=== PATIENT | male | born 1960 | race Caucasian/White ===

== ENCOUNTER 2016-10-13 09:01 | Emergency (ER) | payer OTHER ==
[2016-10-13 09:33] LABS: BASOPHIL# 0.5 X 10^3uL (0.0-0.1); BASOPHILS 2.8 % (0.0-2.0); EOSINOPHILS 1.9 % (0.0-6.0); EOSINOPHILS# 0.4 X 10^3uL (0.0-0.4); HEMATOCRIT 38.2 % (42.0-54.0); LYMPHOCYTES 7.3 % (20.0-40.0); LYMPHOCYTES# 1.4 X 10^3uL (0.8-3.8); MEAN CELL VOLUME 84.1 fL (80.0-100.0); MEAN CORPUS. HGB CONCENTRATION 33.9 g/dL (32.0-36.0); MEAN CORPUSCULAR HEMOGLOBIN 28.5 pg (29.0-35.0); MONOCYTES 10.6 % (2.0-10.0); MONOCYTES# 2.1 X 10^3uL (0.2-1.0); NEUTROPHILS 77.4 % (54.0-75.0); PLATELET COUNT 133 X 10^3uL (130-440); RED BLOOD COUNT 4.54 X 10^6uL (4.20-6.10); RED CELL DISTRIBUTION WIDTH 13.1 % (11.5-14.5); WHITE BLOOD COUNT 19.4 X 10^3uL (3.9-10.7)
[2016-10-13 09:43] LABS: ALBUMIN 3.7 g/dL (3.5-5.0); ALKALINE PHOSPHATASE 81 U/L (38-126); ALT 29 U/L (21-72); AST 13 U/L (17-59); BILIRUBIN, TOTAL 1.4 mg/dL (0.2-1.3); BLOOD UREA NITROGEN 9 mg/dL (9-20); CALCIUM 8.8 mg/dL (8.4-10.2); CHLORIDE 100 mmol/L (98-107); CREATININE 0.7 mg/dL (0.7-1.3); EST GLOMERULAR FILTRATION RATE > 60 mL/min; POTASSIUM 4.1 mmol/L (3.5-5.1); SODIUM 138 mmol/L (137-145); TOTAL PROTEIN 7.4 g/dL (6.3-8.2)
[2016-10-13 09:52] LABS: GLUCOSE 259 mg/dL (70-100)
[2016-10-13] MEDS ORDERED: ACETAMINOPHEN 325 MG TABLET PO ONE (10:03)
[2016-10-13 10:41] LABS: URINE MUCUS NONE SEEN (Up to 25%); URINE RBC NONE SEEN (0-5/hpf); URINE SQUAMOUS EPITHELIAL CELL NONE SEEN (<= 15/hpf)
[2016-10-13 10:48] LABS: URINE AMORPHOUS SEDIMENT UP TO 25%/lpf (Up to 25%); URINE APPEARANCE CLEAR; URINE BACTERIA NONE SEEN (<10/hpf); URINE BILIRUBIN NEGATIVE (NEGATIVE); URINE BLOOD NEGATIVE (NEGATIVE); URINE COLOR YELLOW; URINE GLUCOSE NORMAL (NEGATIVE); URINE KETONE NEGATIVE (NEGATIVE); URINE LEUKOCYTE ESTERASE NEGATIVE (NEGATIVE); URINE NITRITE NEGATIVE (NEGATIVE); URINE PROTEIN NEGATIVE (NEG - TRACE); URINE TRANSITIONAL EPI CELL 0-5/hpf (<=5/hpf); URINE UROBILINOGEN 1mg/dL (Normal) (NEG-1mg/dL); URINE WBC 0-4/hpf (0-4/hpf)
--- NOTE | 2016-10-13 12:56 | ER NURSING DOCUMENTATION ---
Nurse's Notes [facility] Name:Luis A Frye Age:56 yrs Sex:Male :1960 Arrival Date:10/13/2016 Time:08:56 Bed5 Private MD:No PCP, Identified Diagnosis:Fever Presentation: 10/13 08:59 Presenting complaint: Patient states: Body aches, chills, night sweats. Transition of tg care: patient was not received from another setting of care. 08:59 Acuity: HERMILA 3 tg 08:59 Method Of Arrival: Private Vehicle tg 09:18 Presenting complaint: Patient states: HAD SIMILAR SYMPTOMS LAST WEEK, SEEN AT URGENT lc CARE, DID UA THAT WAS NEGATIVE, GIVEN FLEXERIL FOR MUSCLE ACHES. 12:28 Acuity: HERMILA 2 tg Triage Assessment: 09:16 General: Appears in no apparent distress, Behavior is appropriate for age, cooperative. lc Pain: Complains of pain in GENERAL BODY ACHES Pain At worst was 6 out of 10 on a pain scale. Quality of pain is described as aching, Pain began 2-3 days ago. Neuro: Level of Consciousness is awake, alert, Oriented to person, place, time, event. GI: Abdomen is flat, Abd is soft and non tender X 4 quads. GI: Denies diarrhea, nausea, vomiting. Derm: Skin is pink, warm & dry. Denies. Historical: - Allergies: SULFA (SULFONAMIDES); - Home Meds: 1. HCTZ 2. Omeprazole Oral - PMHx: Hypertension; - PSHx: BARIATRIC SLEEVE; - Tetanus: < 10 years. - Ebola Screening: : Patient negative for fever greater than or equal to 101.5 degrees Fahrenheit, and additional compatible Ebola Virus Disease symptoms. Patient denies exposure to infectious person. Patient denies travel to an Ebola-affected area in the 21 days before illness onset. No symptoms or risks identified at this time. . - Immunization history: Flu Vaccine >1 year. - Social history: Smoking status: Patient states was never smoker of tobacco. Screenin:17 Infectious Disease Risk None. Abuse screen: Denies threats or abuse. Denies injuries lc from another. Nutritional screening: No deficits noted. Assessment: 09:17 See Triage Assessment done by same RN. Cardiovascular: Capillary refill < 3 seconds. lc Respiratory: Respiratory effort is even, unlabored. 10:40 Reassessment: Patient appears in no apparent distress at this time. VSS, TEMP DROPPING, lc FLUIDS RUNNING, UP TO BR, STEADY ON FEET, US SENT.. 11:48 Reassessment: Patient states feeling better. Patient states symptoms have improved. Patient appears in no apparent distress at this time. STILL AWAITING CT RESULTS. RESTING COMFORTABLE, FEELING BETTER. 11:59 Reassessment: FOUND A TICK ON HER. PATIENT CHECKED AND NO TICKS OR BITES NOTED.. lc 12:25 Reassessment: TRANSFER ARRANGED. IV FLUSHED AND WRAPPED FOR TRANSFER. MAP GIVEN.. Vital Signs: 08:56 BP 110 / 73 LA Sitting (auto/reg); Pulse 110 RA; Resp 16 S; Temp 99.0(O); Pulse Ox 93% em3 on R/A; Weight 89.81 kg (R); Height 6 ft. 0 in. (182.88 cm) (R); Pain 3/10; 09:50 Pulse 108; Resp 16; Temp 101; lc 10:40 BP 100 / 67; Pulse 96; Resp 16; Temp 100.3; Pulse Ox 93% on R/A; Pain 2/10; lc 11:47 BP 117 / 72; Pulse 96; Resp 18; Pulse Ox 92% on R/A; Pain 2/10; lc 12:24 BP 107 / 70; Pulse 95; Resp 18; Temp 99.9; Pulse Ox 93% on R/A; Pain 1/10; lc 08:56 Body Mass Index 26.85 (89.81 kg, 182.88 cm) em3 ED Course: 08:56 Patient arrived in ED. em3 08:58 Valuables Remains with patient Patient has correct armband on for positive em3 identification. Bed in low position. Call light in reach. Side rails up X 1. 09:00 Triage completed. tg 09:14 Diana Gann, [place] is Primary Nurse. lc 09:19 Shola Kemp MD is Attending Physician. tl1 09:23 Labs drawn. By butcher helper Held in ED. Inserted saline lock: 20 gauge in right forearm and em3 blood collected. 09:42 First set of blood cultures drawn by va. lc 10:[address] pm1 10:[address] pm1 11:03 No PCP, Identified is Private Physician. em3 Administered Medications: 09:43 Drug: NS 0.9% 1000 ml; Route: IV; Rate: bolus; Site: right forearm; Delivery: [place] lc Tubing; 11:00 Follow up: IV Status: Completed infusion; IV Intake: 1000ml 09:54 Drug: Tylenol 975 mg; Route: PO; lc 10:46 Follow up: Response: Temperature is decreased lc Intake: 11:00 IV: 1000ml; Total: 1000ml. Outcome: 12:32 ER care complete, transfer ordered by tl1 12:49 Transferred: Patient will be transferred to: [facility]. Facility lc Acceptance Time: October 13, 2016 at 12:30 Patient's face sheet was faxed to accepting facility. Face Sheet included patient's name, address, age, gender, contact information and insurance information. Patient will be transported by: Private Vehicle. Report called to: ANUJ MAGANA Nurse and Physician Charting and Notes were sent to Accepting Facility. All tests and/or procedures with results, if applicable, were sent to accepting facility. 12:50 Condition: stable lc 12:50 Discharge instructions given to patient, significant other, Instructed on need for transfer Demonstrated understanding of instructions. 12:55 Patient left the ED. Signatures: Nuno Lei RN RN tg Coleman, Linda, RN RN Amberly Livingston pm1 Kwasi Kaiser em3 Shola Kemp MD MD tl1
--- NOTE | 2016-10-13 12:56 | ER PHYSICIAN DOCUMENTATION ---
Physician Documentation [facility] Name:Luis A Frye Age:56 yrs Sex:Male :1960 Arrival Date:10/13/2016 Time:08:56 Bed5 Private MD:No PCP, Identified ED Shola Kelly Disposition: 10/14 07:12 Chart complete. tl1 Disposition: 10/13/16 12:32 Transfer ordered to [facility]. Diagnosis is Fever. - Reason for transfer: Higher level of care. - Accepting physician is Rachell Rodrigues. - Condition is Fair. - Problem is new. - Symptoms have improved. COBRA Form completed? Yes Transfer - Mode of Transportation Private Vehicle - Notes: GO DIRECTLY TO THE [facility] NOW TO ADMITTING FOR ADMISSION TO THE HOSPITALIST SERVICE HPI: 10/13 09:19 This 56 yrs old Male presents to ER via Private Vehicle with complaints of tl1 Fever. 09:20 He is s/p gastric bypass 2 years ago and has been doing well since then. He was fine tl1 until 7 days ago when he presented to an urgent care with rigors. U/A was reportedly normal. He he was diagnosed with a viral syndrome. Last week he was fatigued. Last night he again developed rigors again, without any other symptoms other than some malaise and fatigue and today he comes in for evaluation. He denies sinus/URI symptoms, ST, cough, dyspnea, abdominal pain, N/V/D or urinary symptoms. No rash or skin lesions. No new medications. No h/o malignancy.. Historical: - Allergies: SULFA (SULFONAMIDES); - Home Meds: 1. HCTZ 2. Omeprazole Oral - PMHx: Hypertension; - PSHx: BARIATRIC SLEEVE; - Tetanus: < 10 years. - Ebola Screening: : Patient negative for fever greater than or equal to 101.5 degrees Fahrenheit, and additional compatible Ebola Virus Disease symptoms. Patient denies exposure to infectious person. Patient denies travel to an Ebola-affected area in the 21 days before illness onset. No symptoms or risks identified at this time. . - Immunization history: Flu Vaccine >1 year. - Social history: Smoking status: Patient states was never smoker of tobacco. ROS: 09:20 Constitutional: Positive for body aches, chills, fatigue, fever, malaise. tl1 09:20 All other systems are negative. Exam: 09:20 Head/Face: Normocephalic, atraumatic. tl1 Eyes: Pupils equal round and reactive to light, extra-ocular motions intact. Lids and lashes normal. Conjunctiva and sclera are non-icteric and not injected. Cornea within normal limits. Periorbital areas with no swelling, redness, or edema. ENT: Nares patent. No nasal discharge, no septal abnormalities noted. Tympanic membranes are normal and external auditory canals are clear. Oropharynx with no redness, swelling, or masses, exudates, or evidence of obstruction, uvula midline. Mucous membranes moist. Neck: Trachea midline, no thyromegaly or masses palpated, and no cervical lymphadenopathy. Supple, full range of motion without nuchal rigidity, or vertebral point tenderness. No Meningismus. Cardiovascular: Regular rate and rhythm with a normal S1 and S2. No gallops, murmurs, or rubs. Normal PMI, no JVD. No pulse deficits. Respiratory: Lungs have equal breath sounds bilaterally, clear to auscultation and percussion. No rales, rhonchi or wheezes noted. No increased work of breathing, no retractions or nasal flaring. 09:20 Abdomen/GI: Soft, non-tender, with normal bowel sounds. No distension or tympany. No tl1 guarding or rebound. No evidence of tenderness throughout. MS/ Extremity: Pulses equal, no cyanosis. Neurovascular intact. Full, normal range of motion. Neuro: Awake and alert, GCS 15, oriented to person, place, time, and situation. Cranial nerves II-XII grossly intact. Motor strength 5/5 in all extremities. Sensory grossly intact. Cerebellar exam normal. Normal gait. 09:20 Psych: Awake, alert, with orientation to person, place and time. Behavior, mood, and affect are within normal limits. 09:20 Constitutional: The patient appears in no acute distress, alert, awake, well developed, well hydrated, well groomed, well nourished, uncomfortable, Somewhat ill appearing and flushed. 09:20 Back: CVA tenderness, is absent, vertebral tenderness, is not appreciated. Vital Signs: 08:56 BP 110 / 73 LA Sitting (auto/reg); Pulse 110 RA; Resp 16 S; Temp 99.0(O); Pulse Ox 93% em3 on R/A; Weight 89.81 kg (R); Height 6 ft. 0 in. (182.88 cm) (R); Pain 3/10; 09:50 Pulse 108; Resp 16; Temp 101; lc 10:40 BP 100 / 67; Pulse 96; Resp 16; Temp 100.3; Pulse Ox 93% on R/A; Pain 2/10; lc 11:47 BP 117 / 72; Pulse 96; Resp 18; Pulse Ox 92% on R/A; Pain 2/10; lc 12:24 BP 107 / 70; Pulse 95; Resp 18; Temp 99.9; Pulse Ox 93% on R/A; Pain 1/10; lc 08:56 Body Mass Index 26.85 (89.81 kg, 182.88 cm) em3 MDM: 09:19 Patient medically screened. tl1 10:00 Differential diagnosis: viral Infection, bacterial infection, Intraabdominal abscess, tl1 malignancy, pancreatic pseudocyst. Data reviewed: vital signs, nurses notes, lab test result(s), radiologic studies, CT scan, plain films, and as a result, I will *Transfer Patient. Counseling: I had a detailed discussion with the patient and/or guardian regarding: the historical points, exam findings, and any diagnostic results supporting the discharge/admit diagnosis, lab results, radiology results, the need to transfer to another facility, for higher level of care. ED course: Stable. discussed his case with Dr Rachell Rodrigues who requested avoidance of antibiotics for the time being, which I agree with. I stressed the need for somewhat urgent further characterization of his intraabdominal masses and definitive diagnosis.. 10/13 09:54 Order name: CBC AUTO DIF, MDIF/RMOR IF IND; Complete Time: 06:13 EDMS 10/14 06:10 Interpretation: WHITE BLOOD COUNT 19.4; HEMOGLOBIN 13.0; HEMATOCRIT 38.2; PLATELET tl1 COUNT 133; NEUTROPHILS 77.4. 10/13 09:54 Order name: COMPREHENSIVE METABOLIC PANEL; Complete Time: 06:13 EDMS 10/14 06:12 Interpretation: SODIUM 138; POTASSIUM 4.1; CHLORIDE 100; CARBON DIOXIDE 25; GLUCOSE tl1 259; BLOOD UREA NITROGEN 9; CREATININE 0.7. 10/13 10:00 Order name: LACTATE; Complete Time: 06:13 EDMS 10/14 06:12 Interpretation: Normal: LACTATE 1.4. tl1 10/13 10:49 Order name: UA W/ MICRO -CULTURE IF IND; Complete Time: 06:13 EDMS 10/14 06:12 Interpretation: Normal. tl1 10/14 09:48 Order name: BLOOD CULTURE EDMS 10/14 09:48 Order name: BLOOD CULTURE EDMS 10/14 08:17 Order name: CAT SCAN; ABD/PEL W [id number] EDMS 10/15 07:50 Order name: CXR 2V [id number] EDMS Dispensed Medications: 09:43 Drug: NS 0.9% 1000 ml; Route: IV; Rate: bolus; Site: right forearm; Delivery: [place] lc Tubing; 11:00 Follow up: IV Status: Completed infusion; IV Intake: 1000ml lc 09:54 Drug: Tylenol 975 mg; Route: PO; lc 10:46 Follow up: Response: Temperature is decreased lc Signatures: Diana Gann RN RN Shola Sauceda MD MD tl1
--- NOTE | 2016-10-14 08:16 | CT REPORT ---
HISTORY: Flulike symptoms. COMPARISON: None. TECHNIQUE: This examination was performed using automated exposure control, adjustment of mA or kV according to patient size, and/or use of iterative reconstruction technique. Multiple contiguous axial images were obtained from the lung bases through the pubic symphysis following administration of intravenous con trast. 100cc Isovue 300 and contrast. There is suboptimal opacification of the solid organs and vascular str uctures. FINDINGS: There is a 7 mm nonfatty noncalcified pulmonary nodule in the posterior basilar segment of the right lower lobe in the posterior sulcus. Remainder the lung bases are clear. Visualized heart is not enlar ged. No pericardial effusion. Abdomen/pelvis: The liver is normal in appearance without a mass or evidence of intrahepatic ductal d ilatation. There are 3-4 small less than 5 mm gallstones. No evidence of cholecystitis. The spleen is enlarged measuring 16.4 x 6.8 x 16 cm. No focal mass. There is a 4.3 x 4.7 x 4.6 cm bilobed, circumscribed, hypoattenuating mass in the tail of the pancrea s. This has a density of 22 Hounsfield units. This could represent a pancreatic pseudocyst, phlegmon or cystic neoplasm. There is a 3 x 8 mm right adrenal nodule. This has a density of 22 Hounsfield un its postcontrast. The cervix is indeterminate finding. The right and left kidneys are normal in appe arance. No mass or hydronephrosis is noted. Postoperative changes of previous gastric surgery are noted. There is gas and stool scattered through out the colon. No evidence of obstruction. No free air or pneumatosis. No free fluid. There is hazy mesenteric opacity. This could represent nonspecific inflammation or could be due to th ird spacing of fluid. Vascular structures of the abdomen and pelvis are unremarkable. There is a 2. 7 x 3 cm left periaortic retroperitoneal mass just inferior to the left renal vein. There are additio nal smaller periaortic nodes. The next largest periaortic node on the left measures 1.3 x 2.1 cm. Pelvis demonstrates no mass or adenopathy. No free fluid. No inguinal adenopathy. Anterior abdominal wall is intact. There is old nonhealed fracture of the anterior left 10th rib. There is a hemangioma within the T12 v ertebral body on the right. No lytic or destructive bony lesion. IMPRESSION: 1. 4.3 x 4.7 x 4.6 cm hypoattenuating pancreatic tail mass. Diagnostic considerations would include p ancreatic pseudocyst, phlegmon or cystic/mucinous neoplasm. 2. Periaortic retroperitoneal adenopathy. This may be infectious versus neoplastic in origin. 3. Splenomegaly without focal mass. 4. 7 mm indeterminate pulmonary nodule in the right lower lobe. 5. Indeterminate right adrenal nodule. Findings reviewed with Dr. Sebas Kemp at 10:50 AM. Final Electronic Signature: This report was electronically signed by Ernesto Eid MD on 10/14/2016 8:1 3 AM. [facility] /
--- NOTE | 2016-10-15 07:23 | RADIOLOGY REPORT ---
Two views of the chest, without prior films for comparison, demonstrate the heart, vessels and lungs to be unremarkable. No infiltrate, fluid or pneumothorax is seen. IMPRESSION: Unremarkable two views of the chest. MTDD
== END 2016-10-13 12:56 | disposition short-term general hospital (02) ==
LOC: ER 09:01
DX: R50.9 Fever, unspecified (principal); M79.1 Myalgia; R53.83 Other fatigue; R53.81 Other malaise; R91.1 Solitary pulmonary nodule; R93.5 Abnormal findings on diagnostic imaging of other abdominal regions, including retroperitoneum; Z98.84 Bariatric surgery status; I10 Essential (primary) hypertension; Z79.899 Other long term (current) drug therapy
CPT/HCPCS: 36415; 71020; 74177; 80053; 81001; 83605; 85025; 87040; 96360; 99285